=== PATIENT | female | born 1950 | race Caucasian/White ===

== ENCOUNTER 2020-01-30 15:43 | Emergency (ER) | payer MEDICARE ==
[2020-01-30 15:54] VITALS: RESP 18
[2020-01-30] MEDS ORDERED: SODIUM CHLORIDE 0.9% 1,000 ML IV STA (16:23)
[2020-01-30 16:52] LABS: Anisocytosis Slight; Basophils # (A) 0.1 k/uL (0-0.2); Basophils % (A) 1 %; Eosinophils # (A) 0.4 k/uL (0-0.7); Eosinophils % (A) 3 %; HCT 35.4 % (34.0-46.0); HGB 10.6 gm/dL (11.4-16.0); Hypochromasia Marked; Lymphocytes # (A) 2.2 k/uL (1.0-4.8); Lymphocytes % (A) 21 %; MCH 22.2 pg (25.0-35.0); MCHC 29.9 g/dL (31.0-37.0); MCV 74.1 fL (80.0-100.0); Mean Platelet Volume 7.8; Microcytosis Slight; Monocytes # (A) 0.6 k/uL (0-1.0); Monocytes % (A) 5 %; Neutrophils # (A) 7.3 k/uL (1.3-7.7); Neutrophils % (A) 68 %; Platelet Count 391 k/uL (150-450); RBC 4.77 m/uL (3.80-5.40); RDW 16.3 % (11.5-15.5); WBC 10.8 k/uL (3.8-10.6)
[2020-01-30 17:03] LABS: Partial Thromboplastin Time 22.6 sec (22.0-30.0); Prothrombin Time 10.7 sec (9.0-12.0)
[2020-01-30 17:04] LABS: ALT 38 U/L (4-34); AST 37 U/L (14-36); African American GFR (CKD) >90 (>60 ml/min/1.73 sqM); Albumin 4.1 g/dL (3.5-5.0); Alkaline Phosphatase 85 U/L (38-126); Anion Gap 5 mmol/L; Blood Urea Nitrogen 12 mg/dL (7-17); Calcium 10.3 mg/dL (8.4-10.2); Carbon Dioxide 28 mmol/L (22-30); Chloride 104 mmol/L (98-107); Glucose 126 mg/dL (74-99); Non-African American GFR(CKD) >90 (>60 ml/min/1.73 sqM); Potassium 4.1 mmol/L (3.5-5.1); Sodium 137 mmol/L (137-145); Total Bilirubin 0.4 mg/dL (0.2-1.3); Total Protein 7.1 g/dL (6.3-8.2)
--- NOTE | 2020-01-30 17:38 | ED ---
Neuro HPI - General Chief Complaint: Neuro Symptoms/Deficit Stated Complaint: Vision loss Time Seen by Provider: 01/30/20 16:08 Source: patient, family, RN notes reviewed, old records reviewed Mode of arrival: wheelchair Limitations: no limitations - History of Present Illness Is the patient presenting with stroke symptoms?: No -: month(s) Initial Comments: This is a 61-year-old female who is presenting today for evaluation regards to diminishing vision in left eye. She does follow-up with swimming pool attendant has been being seen over the last year so. Patient states his symptoms are upper mildly progressively worsening over the past few months and she had an appointment today with significant worse vision in her left eye. Patient with senna DF for further evaluation regarding possible brain tumor. Patient denies any headache currently no nausea no vomiting no other complaints no neurological symptoms in hands or legs Location: speech History of same: Yes Place: home Severity: mild Improves With: none Worsens With: none On Anticoagulants: Yes Associated Symptoms: denies other symptoms Treatments Prior to Arrival: none - Related Data Home Medications: Home Medications Medication Instructions Recorded Confirmed Fluticasone Nasal [place] [Flonase 2 sprays EA NOSTRIL DAILY 01/30/20 01/30/20 Nasal [place]] Omeprazole 20 mg PO DAILY 01/30/20 01/30/20 amLODIPine BESYLATE/BENAZEPRIL 1 cap PO DAILY 01/30/20 01/30/20 [Lotrel 10-40 MG] glipiZIDE [Glucotrol] 5 mg PO AC-BID 01/30/20 01/30/20 hydrALAZINE HCL [Apresoline] 50 mg PO TID 01/30/20 01/30/20 Allergies/Adverse Reactions: Allergies Allergy/AdvReac Type Severity Reaction Status Date / Time No Known Allergies Allergy Verified 01/30/20 17:45 Review of Systems ROS Statement: Those systems with pertinent positive or pertinent negative responses have been documented in the HPI. ROS Other: All systems not noted in ROS Statement are negative. General Exam - General Exam Comments Initial Comments: She complains of left-sided vision loss is able to see shadows Limitations: no limitations General appearance: alert, in no apparent distress Head exam: Present: atraumatic, normocephalic, normal inspection Eye exam: Present: normal appearance, PERRL, EOMI. Absent: scleral icterus, conjunctival injection, periorbital swelling ENT exam: Present: normal exam, mucous membranes moist Neck exam: Present: normal inspection. Absent: tenderness, meningismus, lymphadenopathy Respiratory exam: Present: normal lung sounds bilaterally. Absent: respiratory distress, wheezes, rales, rhonchi, stridor Cardiovascular Exam: Present: regular rate, normal rhythm, normal heart sounds. Absent: systolic murmur, diastolic murmur, rubs, gallop, clicks GI/Abdominal exam: Present: soft, normal bowel sounds. Absent: distended, tenderness, guarding, rebound, rigid Extremities exam: Present: normal inspection, full ROM, normal capillary refill. Absent: tenderness, pedal edema, joint swelling, calf tenderness Back exam: Present: normal inspection Neurological exam: Present: alert, oriented X3, CN II-XII intact Psychiatric exam: Present: normal affect, normal mood Skin exam: Present: warm, dry, intact, normal color. Absent: rash Stroke MDM - Lab Data Result diagrams: 01/30/20 16:40 01/30/20 16:40 Lab Results 01/30/20 01/30/20 01/30/20 Range/Units 16:40 16:40 16:40 WBC 10.8 H (3.8-10.6) k/uL RBC 4.77 (3.80-5.40) m/uL Hgb 10.6 L (11.4-16.0) gm/dL Hct 35.4 (34.0-46.0) % MCV 74.1 L (80.0-100.0) fL MCH 22.2 L (25.0-35.0) pg MCHC 29.9 L (31.0-37.0) g/dL RDW 16.3 H (11.5-15.5) % Plt Count 391 (150-450) k/uL Neutrophils % 68 % Lymphocytes % 21 % Monocytes % 5 % Eosinophils % 3 % Basophils % 1 % Neutrophils # 7.3 (1.3-7.7) k/uL Lymphocytes # 2.2 (1.0-4.8) k/uL Monocytes # 0.6 (0-1.0) k/uL Eosinophils # 0.4 (0-0.7) k/uL Basophils # 0.1 (0-0.2) k/uL Hypochromasia Marked Anisocytosis Slight Microcytosis Slight PT 10.7 (9.0-12.0) sec INR 1.0 (<1.2) APTT 22.6 (22.0-30.0) sec Sodium 137 (137-145) mmol/L Potassium 4.1 (3.5-5.1) mmol/L Chloride 104 (98-107) mmol/L Carbon Dioxide 28 (22-30) mmol/L Anion Gap 5 mmol/L BUN 12 (7-17) mg/dL Creatinine 0.55 (0.52-1.04) mg/dL Est GFR (CKD-EPI)AfAm >90 (>60 ml/min/1.73 sqM) Est GFR (CKD-EPI)NonAf >90 (>60 ml/min/1.73 sqM) Glucose 126 H (74-99) mg/dL Calcium 10.3 H (8.4-10.2) mg/dL Total Bilirubin 0.4 (0.2-1.3) mg/dL AST 37 H (14-36) U/L ALT 38 H (4-34) U/L Alkaline Phosphatase 85 (38-126) U/L Troponin I (0.000-0.034) ng/mL Total Protein 7.1 (6.3-8.2) g/dL Albumin 4.1 (3.5-5.0) g/dL /1820 Range/Units 16:40 WBC (3.8-10.6) k/uL RBC (3.80-5.40) m/uL Hgb (11.4-16.0) gm/dL Hct (34.0-46.0) % MCV (80.0-100.0) fL MCH (25.0-35.0) pg MCHC (31.0-37.0) g/dL RDW (11.5-15.5) % Plt Count (150-450) k/uL Neutrophils % % Lymphocytes % % Monocytes % % Eosinophils % % Basophils % % Neutrophils # (1.3-7.7) k/uL Lymphocytes # (1.0-4.8) k/uL Monocytes # (0-1.0) k/uL Eosinophils # (0-0.7) k/uL Basophils # (0-0.2) k/uL Hypochromasia Anisocytosis Microcytosis PT (9.0-12.0) sec INR (<1.2) APTT (22.0-30.0) sec Sodium (137-145) mmol/L Potassium (3.5-5.1) mmol/L Chloride (98-107) mmol/L Carbon Dioxide (22-30) mmol/L Anion Gap mmol/L BUN (7-17) mg/dL Creatinine (0.52-1.04) mg/dL Est GFR (CKD-EPI)AfAm (>60 ml/min/1.73 sqM) Est GFR (CKD-EPI)NonAf (>60 ml/min/1.73 sqM) Glucose (74-99) mg/dL Calcium (8.4-10.2) mg/dL Total Bilirubin (0.2-1.3) mg/dL AST (14-36) U/L ALT (4-34) U/L Alkaline Phosphatase (38-126) U/L Troponin I <0.012 (0.000-0.034) ng/mL Total Protein (6.3-8.2) g/dL Albumin (3.5-5.0) g/dL - NIH Stroke Scale 1a. Level of Consciousness: (0) alert 1b. LOC Questions: (0) answers correctly 1c. LOC Commands: (0) performs tasks correctly 2. Best Gaze: (0) normal 3. Visual: (0) no visual loss 4. Facial Palsy: (0) normal symmetrical movement 5a. Motor Arm Left: (0) no drift 5b. Motor Arm Right: (0) no drift 6a. Motor Leg Left: (0) no drift 6b. Motor Leg Right: (0) no drift 7. Limb Ataxia: (0) absent 8. Sensory: (0) normal 9. Best Language: (0) no aphasia 10. Dysarthria: (0) normal 11. 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 with some impingement on left optic nerve, will transfer to [facility] for MRI, and further eval - Radiology Data Radiology results: report reviewed (CT does show likely brain tumor with c ompression on optic nerve), image reviewed - EKG Data -: EKG Interpreted by Me (EKG shows NSR 71 OK 162 QRS 86 QTc 469) Past Medical History Past Medical History: Diabetes Mellitus, GERD/Reflux, Hypertension History of Any Multi-Drug Resistant Organisms: None Reported Past Surgical History: Appendectomy, Ear Surgery, Hysterectomy Additional Past Surgical History / Comment(s): L ear Past Psychological History: No Psychological Hx Reported Smoking Status: Never smoker Past Alcohol Use History: None Reported Past Drug Use History: None Reported Course Vital Signs 01/30/20 01/30/20 15:49 18:26 Temperature 98.5 F 97.2 F L Pulse Rate 82 82 Respiratory 18 18 Rate Blood Pressure 152/78 148/95 O2 Sat by Pulse 98 98 Oximetry - Reevaluation(s) Reevaluation #1: 01/30/20 19:26 medical record is reviewed Reevaluation #2: 01/30/20 19:26 patient has no new complaints, no improvement or change in symptoms Reevaluation #3: 01/30/20 19:27 patient and daughter given results questions ansered - Consultations Consultation #1: spoke w [facility] to accept transfer Disposition Clinical Impression: Vision changes, Brain tumor Narrative: 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 Specs Out of Hospital Transfer - Requested Specifics: Other Emergency Center ([facility])
--- NOTE | 2020-01-30 17:48 | XR ---
EXAMINATION TYPE: XR chest 2V DATE OF EXAM: 01/30/2020 COMPARISON: NONE HISTORY: Vision loss TECHNIQUE: 3 views FINDINGS: There is no heart failure nor confluent pneumonic infiltrate. Costophrenic angles are clear . There is minor spurring in the thoracic spine. Bony thorax is intact. IMPRESSION: No active cardiopulmonary disease.
--- NOTE | 2020-01-30 17:56 | CT ---
EXAMINATION TYPE: CT brain wo con DATE OF EXAM: 01/30/2020 COMPARISON: None HISTORY: Left sided vision loss for [address] DLP: 1102.8 mGycm Automated exposure control for dose reduction was used. There is mild cerebral cortical atrophy. There is no mass effect nor midline shift. There is no sign of intracranial hemorrhage. The calvarium is intact. There is maxillary sinus mucosal thickening. IMPRESSION: Mild atrophy. No acute intracranial abnormality. Maxillary sinusitis.
--- NOTE | 2020-01-30 18:00 | CT ---
EXAMINATION TYPE: CT orbits w con DATE OF EXAM: 01/30/2020 COMPARISON: None HISTORY: Left sided vision loss for [address] DLP: 274.8 mGycm Automated exposure control for dose reduction was used. CONTRAST: Performed with IV Contrast, patient injected with 65 mL of Isovue 370. Orbital margins are intact. There is increased density on the left lateral aspect of the bony orbit a long the lateral rectus muscle. This is consistent with acute hemorrhage that measures 20 x 9 mm. The re is some medial displacement of the posterior left side optic nerve within the bony orbit. This is a result of the apparent acute hemorrhage on the left lateral aspect. There is no retro-orbital mass on the right side. The globes are symmetric. The sella turcica appears normal. There is no evidence o f a sellar mass. There is mild mucosal thickening in both maxillary sinuses. IMPRESSION: Linear area of high attenuation on the left lateral wall of the left bony orbit with mass effect upon the optic nerve which is displaced medially. This is consistent with acute hemorrhage. Tumor not exc luded. Maxillary sinusitis.
--- NOTE | 2020-01-30 18:11 | CT ---
EXAMINATION TYPE: CT angio head neck DATE OF EXAM: 01/30/2020 COMPARISON: None HISTORY: Left sided vision loss for [address] DLP: 632.9 mGycm Automated exposure control for dose reduction was used. CONTRAST: Performed with IV Contrast, patient injected with 65 mL of Isovue 370. Multiple axial sections were obtained from the aortic arch to the vertex of the brain with intravenou s contrast. There are 3-D post processed images. There is normal branching pattern of the great vessels on the aortic arch. There is bilateral arteria l flow in the subclavian arteries. There is arterial flow in the common internal and external carotid arteries bilaterally. There is plaque formation at the carotid artery bifurcations and lumen narrowi ng less than 15%. There is arterial flow in both vertebral arteries. Left vertebral artery is larger than the right. There is arterial flow in the vertebrobasilar artery system. There is arterial flow in the anterior middle and posterior cerebral arteries. I see no evidence of i ntracranial aneurysm or neovascularity. There is no mass effect. There is normal contrast opacificati on of the venous sinuses. There is a 20 x 7 mm area of increased attenuation on the posterior lateral aspect of the left bony orbit this does not appear to be enhancing and unchanged compared to the non contrast exam. IMPRESSION: Minimal atherosclerotic changes in the carotid artery bifurcations without evidence of hemodynamic st enosis. No intracranial angiographic abnormality. High attenuation mass within the left bony orbit without obvious enhancement could be acute hemorrhag e. There is mass effect upon the left optic nerve which is displaced medially.
[2020-01-30] MEDS ORDERED: DEXAMETHASONE SOD PHOSPHATE 10 MG/ML 1 ML VIAL IV STA (19:29)
[2020-01-30 20:00] VITALS: BP 155/79; PULSE 80; TEMP 98.5
== END 2020-01-30 20:30 | disposition other institution (70) ==
LOC: EC 15:43
DX: D49.6 Neoplasm of unspecified behavior of brain (principal); H53.9 Unspecified visual disturbance; E11.9 Type 2 diabetes mellitus without complications; I10 Essential (primary) hypertension; K21.9 Gastro-esophageal reflux disease without esophagitis; Z79.51 Long term (current) use of inhaled steroids; Z79.84 Long term (current) use of oral hypoglycemic drugs; Z79.899 Other long term (current) drug therapy
CPT/HCPCS: 36415; 93005; 80053; 84484; 85025; 85610; 85730; 71046; 70496; 70450; 70481; 70498; 99285; 96374; 96361; J1100; Q9967